=== PATIENT | female | born 1985 | race African-American/Black ===

== ENCOUNTER 2021-09-22 03:46 | Emergency (ER) | payer OTHER ==
[~2021-09-22] VITALS: Ht 167.6 cm; Wt 117.9 kg
== END 2021-09-22 04:56 | disposition home or self-care (01) ==
LOC: ER 03:46
DX: F12.929 Cannabis use, unspecified with intoxication, unspecified (principal); R11.2 Nausea with vomiting, unspecified; R19.7 Diarrhea, unspecified
CPT/HCPCS: 96372; 99284-25; A9270; J2550